=== PATIENT | female | born 1990 | race Two or more races ===

== ENCOUNTER 2024-03-25 18:26 | Emergency (ER) | payer OTHER ==
[~2024-03-25] VITALS: Ht 157.5 cm; Wt 72.6 kg
[2024-03-25] MEDS ORDERED: FAMOtidine 10 MG/ML (4ML VIAL) IV ONE (18:45)
[2024-03-25] MEDS ORDERED: ONDANSETRON HCL 2 MG/ML VIAL ONE (18:54)
[2024-03-25] MEDS ORDERED: FAMOTIDINE/PF 20 MG/2 ML VIAL ONE (18:54)
[2024-03-25] MEDS ORDERED: ONDANSETRON HCL 2 MG/ML VIAL IV ONE (19:00)
[2024-03-25] MEDS ORDERED: 0.9 % SODIUM CHLORIDE 1,000 ML IV ONE (19:00)
[2024-03-25 19:35] LABS: ALBUMIN 3.8 gm/dL (3.4-5.0); BILIRUBIN TOTAL 0.85 mg/dL (0.3-1.2); CALCIUM 9.2 mg/dL (8.5-10.1); CREATININE SERUM 0.76 mg/dL (0.55-1.02); GFR 87.64; GLOBULINA 4.1 G/DL (2.4-3.5); POTASSIUM 3.95 mEq/L (3.5-5.1); TOTAL PROTEIN 7.9 gm/dL (6.4-8.2)
[2024-03-25 19:41] LABS: PH,URINE 5.5 (5.0-8.0); URINE APPEARANCE Clear; URINE BILIRRUBIN Negative (NEGATIVE); URINE BLOOD Trace; URINE COLOR Yellow; URINE GLUCOSE Negative (NEGATIVE); URINE KETONE Negative (NEGATIVE); URINE LEUKOCYTE Negative; URINE NITRATE Negative; URINE PROTEIN Negative (NEGATIVE)
[2024-03-25 19:45] LABS: URINE BACTERIA 825.1 uL (0.0-1933); URINE EPITHELIAL CELLS 51.5 uL (0.0-38.8); URINE RBC 7.6 uL (0.0-20.8); URINE WBC 15.7 uL (0.0-23.2)
[2024-03-25 20:12] LABS: URINE CAST 0.15 uL (0.0-1.40)
[2024-03-25 20:18] LABS: HEMATOCRIT 36.3 % (36.0-45.00); MEAN CELL VOLUME 90.2 fL (80.00-100.00); MEAN CORPUSCULAR HEMOGLOBIN 32.3 pg (27.00-32.0); MEAN CORPUSCULAR HGB CONC 35.9 g/dl (32.0-36.0); PLATELET COUNT 270 K/uL (150-450); RED BLOOD COUNT 4.03 M/uL (4.00-6.00); RED CELL DISTRIBUTION WIDTH 12.7 % (11.5-14.5)
[2024-03-26] MEDS ORDERED: PEPCID AC20 MG PO (00:16)
== END 2024-03-26 00:28 | disposition home or self-care (01) ==
LOC: ER 18:27
PROVIDERS: General Practice
DX: K29.70 Gastritis, unspecified, without bleeding (principal); R19.7 Diarrhea, unspecified
CPT/HCPCS: 36415; 74177; Q9965